=== PATIENT | female | born 1955 | race Caucasian/White ===

== ENCOUNTER → 2016-03-22 | Day surgery (SDC) | payer OTHER ==
[~2016-03-22] MED LIST: ACETAMINOPHEN 1000 MG/100 ML VIAL IV ONE; APREPITANT 40 MG CAP ONE; CYCL-36 PO; EPINEPHrine HCL (1:1000) 1 MG/ML VIAL ONE; LACTATED RINGER'S 1000 ML INJ 1,000 ML ONE; LIDOCAINE HCL 1% PF 30 ML VIAL ONE; LORT5TAB PO; MIDAZOLAM HCL 2 MG/2 ML VIAL ONE; ONDANSETRON HCL 4 MG/2 ML VIAL IV PUSH ONE; PROPOFOL 100 MG/10 ML INJ IV ONE; ceFAZolin INJ 1,000 MG VIAL ONE
--- NOTE | 2016-03-22 09:06 | TN ---
cc: ZACHARIAH COHEN M.D. DATE OF SURGERY: 03/22/2016 PREOPERATIVE DIAGNOSIS Panfacial atrophy. POSTOPERATIVE DIAGNOSIS Panfacial atrophy. PROCEDURE Facial fat injection. SURGEON Zachariah Cohen MD ANESTHESIA LMA general. ESTIMATED BLOOD LOSS Minimal. Total fat harvest from the lateral thighs and inner thighs 1200. Total tumescent applied 1230. Total of fat injected 70 cc, 30 in the right, 40 in the left face including the supraorbital, infraorbital, cheek, nasolabial folds, marionette lines and chin area. DETAILS OF PROCEDURE The procedure was properly consented, marked and anesthetized. The skin was sterilized with Microcyn and sterile draping applied. A full body Betadine prep was done for the torso and Microcyn was utilized for the head and neck. After tumescing the lateral and inner thighs with dilute lidocaine in which 1000 cc was mixed with 30 cc of 1% lidocaine and 1 cc of epinephrine 1:1,000, 1200 cc was evacuated, filtered and strained into small cannulas. Blunt cannulas were utilized of which I proceeded and performed the injections utilizing puncture wounds in the supraorbital, congregation area, infraorbital, cheek area, nasolabial fold, marionette lines and chin area. Again a total of 70 cc were utilized, and of those 40 cc were utilized on the left side of the face and 30 cc on the right side of the face. Each and every one of the puncture wounds which were done utilizing an 11 blade were closed utilizing 5-0 chromic suture. For dressings antibiotic ointment was applied to the face and for the suction area Steri-Strips and a girdle. Overall the patient tolerated the procedure well. She was awakened and extubated in the operating room, and transferred back to the post-anesthesia care unit in stable condition. No complications appreciated. The patient tolerated the procedure fairly well. MD ROSY Johnson/PREMA /8:45 AM /8:52 AM
== END | disposition home or self-care (01) ==
LOC: ESDC 06:16
PROVIDERS: ATTEND Plastic Surgery
DX: Z41.1 Encounter for cosmetic surgery (principal)
CPT/HCPCS: 00300; 11954; J0131; J0171; J0690; J2250; J2405; J3010; J7120; J8501